=== PATIENT | male | born 1985 | race African-American/Black ===

== ENCOUNTER 2017-08-10 01:31 | Emergency (ER) | payer SELFPAY ==
[2017-08-10] MEDS ORDERED: NORMAL SALINE 1000 ML 1,000 ML IV ONE (02:25)
[2017-08-10] MEDS ORDERED: ONDANSETRON HCL INJ/PF 4 MG/2 ML SDV IV ONE (02:25)
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
--- NOTE | 2017-08-10 03:39 | RADIOLOGY REPORT (SQ) ---
EXAM DESCRIPTION: CT HEAD WITHOUT COMPLETED DATE/TIME: 08/10/2017 3:25 am REASON FOR STUDY: head trauma, vomiting COMPARISON: None. TECHNIQUE: Axial images acquired through the brain without intravenous contrast. Images reviewed wi th bone, brain and subdural windows. Images stored on PACS. All CT scanners at this facility use dose modulation, iterative reconstruction, and/or weight based d osing when appropriate to reduce radiation dose to as low as reasonably achievable (ALARA). [facility]: Dose Right [facility]: CareDose [facility]: Dose Right [facility]: Teradose 4D [facility]: [employer] RADIATION DOSE: mGy. LIMITATIONS: None. FINDINGS: VENTRICLES: Normal size and contour. CEREBRUM: No mass effect. No hemorrhage. No midline shift. Normal jiang/white matter differentiatio n. No evidence for acute territorial infarction. CEREBELLUM: No mass effect. No hemorrhage. No alteration of density. No evidence for acute infarct ion. EXTRAAXIAL SPACES: No fluid collections. ORBITS AND GLOBE: Symmetrical contour of the globes. CALVARIUM: No depressed skull fracture. PARANASAL SINUSES: No air-fluid level. SOFT TISSUES: No hematoma. IMPRESSION: No acute intracranial hemorrhage or depressed calvarial fracture. EVIDENCE OF ACUTE STROKE: NO. COMMENT: Quality ID # [id number]: Final reports with documentation of one or more dose reduction techniques (e.g., Automated exposure control, adjustment of the mA and/or kV according to patient size, use of iterative reconstruction technique) TECHNICAL DOCUMENTATION: JOB ID: [id number] [place]-[employer] 2010 [employer]- All Rights Reserved
[2017-08-10] MEDS ORDERED: KETOROLAC TROMETHAMINE INJ/PF 30 MG/1 ML SDV IV ONE (03:42)
[2017-08-10] MEDS ORDERED: PROCHLORPERAZINE EDISYLATE INJ 10 MG/2 ML VIAL IV ONE (03:42)
[2017-08-10] MEDS ORDERED: DIPHENHYDRAMINE HCL 50 MG/ML VIAL IV ONE (03:42)
[2017-08-10] MEDS ORDERED: ONDANSETRON ODT 4 MG TAB (6 TAB/DSPK) PO PRN (03:43)
[2017-08-10 04:59] VITALS: BP 106/45
== END 2017-08-10 04:59 | disposition home or self-care (01) ==
LOC: ER 01:31
DX: S09.90XA Unspecified injury of head, initial encounter (principal); S06.0X0A Concussion without loss of consciousness, initial encounter; R11.10 Vomiting, unspecified; R10.9 Unspecified abdominal pain; R04.2 Hemoptysis; R51 Headache; F17.200 Nicotine dependence, unspecified, uncomplicated; Y08.09XA Assault by strike by other specified type of sport equipment, initial encounter
CPT/HCPCS: 99284; 96361; 96374; 96375; 70450; J1200; J1885; J0780; J2405; J7030

== ENCOUNTER 2018-01-01 15:10 | Emergency (ER) | payer SELFPAY ==
[2018-01-01] MEDS ORDERED: PROCHLORPERAZINE EDISYLATE INJ 10 MG/2 ML VIAL IV ONE (17:23)
[2018-01-01] MEDS ORDERED: NORMAL SALINE 1000 ML 1,000 ML IV ONE (17:23)
[2018-01-01] MEDS ORDERED: KETOROLAC TROMETHAMINE INJ/PF 30 MG/1 ML SDV IV ONE (17:23)
[2018-01-01] MEDS ORDERED: DIPHENHYDRAMINE HCL 50 MG/ML VIAL IV ONE (17:23)
--- NOTE | 2018-01-01 17:23 | ER Document Report ---
HPI - HPI Patient complains to provider of: Headache Onset: Other - Monday Onset/Duration: Gradual Pain Level: 4 Context: 32-year-old smoker male complaining of a gradual onset frontal and temporal bilateral throbbing headache. It gradually increased to level 4-1/2/5. He has headaches that are this bad about once a year. Otherwise his headache history is about 2 normal headaches per month. No fever or chills. No recent illness or infection. No IV drug use. Associated Symptoms: None Exacerbated by: Other - Light and sound Relieved by: Denies - ROS ROS below otherwise negative: Yes Systems Reviewed and Negative: Yes All other systems reviewed and negative - NEURO Neurology: REPORTS: Headache Past Medical History - General Information source: Patient - Social History Smoking Status: Current Every Day Smoker Chew tobacco use (# tins/day): No Frequency of alcohol use: None Lives with: Spouse/Significant other Family History: Reviewed & Not Pertinent Patient has suicidal ideation: No Patient has homicidal ideation: No Pulmonary Medical History: Reports: Hx Asthma Neurological Medical History: Reports: Hx Migraine Renal/ Medical History: Denies: Hx Peritoneal Dialysis Surgical Hx: Negative - Immunizations Hx Diphtheria, Pertussis, Tetanus Vaccination: Yes Vertical Provider Document - CONSTITUTIONAL Agree With Documented VS: Yes Exam Limitations: No Limitations - INFECTION CONTROL TRAVEL OUTSIDE OF THE [place] IN LAST 30 DAYS: No - HEENT HEENT: DRE. negative: Conjuctival Injection, Pharyngeal Erythema - NECK Neck: Supple. negative: Lymphadenopathy-Left, Lymphadenopathy-Right - RESPIRATORY Respiratory: Breath Sounds Normal, No Respiratory Distress - CARDIOVASCULAR Cardiovascular: Regular Rate, Regular Rhythm - GI/ABDOMEN Gastrointestinal: Abdomen Soft, Abdomen Non-Tender, No Organomegaly, Normal Bowel Sounds - MUSCULOSKELETAL/EXTREMETIES Musculoskeletal/Extremeties: MAEW - NEURO Level of Consciousness: Awake, Alert Motor/Sensory: No Motor Deficit, No Sensory Deficit - DERM Integumentary: Warm, Dry Course - Re-evaluation Re-evalutation: 01/01/18 18:13 Headache is down to 1/5 and he. He feels like he is ready to go home. His went out to smoke a cigarette. - Vital Signs Vital signs: Temp Pulse Resp BP Pulse Ox 98.4 F 66 16 129/62 H 100 01/01/18 15:33 01/01/18 15:33 01/01/18 15:33 01/01/18 15:33 01/01/18 15:33 Discharge - Discharge Clinical Impression: Headache Qualifiers: Headache type: unspecified Headache chronicity pattern: acute headache Intractability: not intractable Qualified Code(s): R51 - Headache Condition: Good Disposition: HOME, SELF-CARE Instructions: Intravenous Compazine for Headaches ([facility]), Use of Diphenhydramine , Headache ([facility]), Toradol Injection ([facility]) Additional Instructions: rest plenty of fluids Return to the emergency room if symptoms worsen Can see a neurologist for headache follow-up Referrals: CARMEN LO MD [NO LOCAL MD] - Follow up as needed
[2018-01-01 18:53] VITALS: BP 125/81
== END 2018-01-01 18:51 | disposition home or self-care (01) ==
LOC: ER 15:10
DX: R51 Headache (principal); J45.909 Unspecified asthma, uncomplicated; F17.200 Nicotine dependence, unspecified, uncomplicated; Z86.69 Personal history of other diseases of the nervous system and sense organs
CPT/HCPCS: 99283; 96361; 96374; 96375; J1200; J1885; J0780; J7030

== ENCOUNTER 2018-09-06 15:42 | Emergency (ER) | payer SELFPAY ==
[2018-09-06 15:47] VITALS: BP 119/57
[2018-09-06] MEDS ORDERED: ACETAMINOPHEN 325 MG TABLET PO ONE (17:11)
[2018-09-06] MEDS ORDERED: ONDANSETRON 4 MG TAB.RAPDIS PO ONE (17:11)
--- NOTE | 2018-09-06 17:12 | ER Document Report ---
ED Medical Screen (RME) - General Chief Complaint: Abdominal Pain Stated Complaint: ABDOMINAL PAIN Time Seen by Provider: 09/06/18 17:11 Mode of Arrival: Ambulatory Information source: Patient Notes: Patient presents complaining of cold symptoms with mild congestion. Patient reports abdominal discomfort off and on today. Patient states that he does not feel well but denies any specific nausea vomiting or diarrhea. Patient denies any fever or urinary symptoms. Patient states that he did not feel well enough to work and will likely need a note for his employer. I have greeted and performed a rapid initial assessment of this patient. A comprehensive ED assessment and evaluation of the patient, analysis of test results and completion of the medical decision making process will be conducted by additional ED providers. TRAVEL OUTSIDE OF THE [place] IN LAST 30 DAYS: No - Related Data Allergies/Adverse Reactions: No Known Allergies Allergy (Verified 08/10/17 03:10) Past Medical History Pulmonary Medical History: Reports: Hx Asthma Neurological Medical History: Reports: Hx Migraine Renal/ Medical History: Denies: Hx Peritoneal Dialysis - Immunizations Hx Diphtheria, Pertussis, Tetanus Vaccination: Yes Physical Exam - Vital signs Vitals: Temp Pulse Resp BP Pulse Ox 97.9 F 75 20 119/57 L 100 09/06/18 15:46 09/06/18 15:46 09/06/18 15:46 09/06/18 15:46 09/06/18 15:46 - Abdominal Tenderness: Tender - Periumbilical Course - Vital Signs Vital signs: Temp Pulse Resp BP Pulse Ox 97.9 F 75 20 119/57 L 100 09/06/18 15:46 09/06/18 15:46 09/06/18 15:46 09/06/18 15:46 09/06/18 15:46
[2018-09-06 18:15] LABS: ABSOLUTE BASOPHILS # (AUTO) 0.1 10^3/uL (0.0-0.2); ABSOLUTE EOSINOPHILS # (AUTO) 0.4 10^3/uL (0.0-0.6); ABSOLUTE MONOCYTES (AUTO) 0.7 10^3/uL (0.1-1.4); ABSOLUTE NEUT (AUTO) 5.5 10^3/uL (1.7-8.2); BASOPHILS % (AUTO) 0.7 % (0-2); EOSINOPHILS % (AUTO) 4.4 % (0-6); HEMATOCRIT 40.5 % (37.9-51.0); HEMOGLOBIN 13.5 g/dL (13.5-17.0); LYMPHOCYTES % (AUTO) 23.1 % (13-45); MEAN CORPUSCULAR HEMOGLOBIN 27.7 pg (27.0-33.4); MEAN CORPUSCULAR HGB CONC 33.2 g/dL (32.0-36.0); MEAN CORPUSCULAR VOLUME 83 fl (80-97); MONOCYTES % (AUTO) 8.6 % (3-13); PLATELET COUNT 192 10^3/uL (150-450); RED BLOOD COUNT 4.86 10^6/uL (4.35-5.55); RED CELL DISTRIBUTION WIDTH 14.5 % (11.5-14.0); SEGMENTED NEUTROPHILS % (AUTO) 63.2 % (42-78); TOTAL CELLS COUNTED % (AUTO) 100 %; WHITE BLOOD COUNT 8.6 10^3/uL (4.0-10.5)
[2018-09-06 18:22] LABS: APPEARANCE,URINE CLEAR; BILIRUBIN,URINE NEGATIVE (NEGATIVE); COLOR,URINE YELLOW; GLUCOSE, URINE NEGATIVE (NEGATIVE); KETONES,URINE NEGATIVE (NEGATIVE); LEUKOCYTE ESTERASE,URINE NEGATIVE (NEGATIVE); NITRITE,URINE NEGATIVE (NEGATIVE); PROTEIN,URINE NEGATIVE (NEGATIVE); URINE SPECIFIC GRAVITY 1.023
[2018-09-06 18:34] LABS: ALANINE AMINOTRANSFERASE 24 U/L (21-72); ALKALINE PHOSPHATASE 99 U/L (38-126); ANION GAP 5 (5-19); ASPARTATE AMINO TRANSFERASE 30 U/L (17-59); BILIRUBIN,DIRECT 0.1 mg/dL (0.0-0.4); BILIRUBIN,TOTAL 0.5 mg/dL (0.2-1.3); BLOOD UREA NITROGEN 13 mg/dL (7-20); CALCIUM 9.7 mg/dL (8.4-10.2); CARBON DIOXIDE 30 mmol/L (22-30); CHLORIDE 105 mmol/L (98-107); GLUCOSE 72 mg/dL (75-110); LIPASE 88.3 U/L (23-300); POTASSIUM 4.3 mmol/L (3.6-5.0); SODIUM 140.1 mmol/L (137-145); TOTAL PROTEIN 6.7 g/dL (6.3-8.2)
--- NOTE | 2018-09-06 19:00 | ER Document Report ---
HPI - HPI Patient complains to provider of: Cold symptoms, abdominal cramping Time Seen by Provider: 09/06/18 17:11 Onset: Yesterday Onset/Duration: Waxing and waning Quality of pain: Achy Pain Level: 2 Context: Pt presents complaining of cold symptoms with mild abdominal cramping off and on since yesterday. 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 Patient states he primarily came for a note for his employer. Patient denies any vomiting or diarrhea. Patient denies any fever or urinary symptoms. Associated Symptoms: Nonproductive cough, Nausea, Other - abd cramping. denies: Earache, Fever, Vomiting, Rhinnorhea, Shortness of breath Exacerbated by: Denies Relieved by: Denies Similar symptoms previously: No Recently seen / treated by doctor: No - ROS ROS below otherwise negative: Yes Systems Reviewed and Negative: Yes All other systems reviewed and negative - CONSTITUTIONAL Constitutional: DENIES: Fever, Chills - EENT EENT: REPORTS: Congestion. DENIES: Sore Throat - NEURO Neurology: DENIES: Headache - CARDIOVASCULAR Cardiovascular: DENIES: Chest pain - RESPIRATORY Respiratory: REPORTS: Coughing. DENIES: Trouble Breathing - GASTROINTESTINAL Gastrointestinal: REPORTS: Abdominal Pain, Nausea. DENIES: Patient vomiting, Diarrhea - URINARY Urinary: DENIES: Dysuria - MUSCULOSKELETAL Musculoskeletal: DENIES: Back Pain - DERM Skin Color: Normal Skin Problems: None Past Medical History - General Information source: Patient - Social History Smoking Status: Current Some Day Smoker Chew tobacco use (# tins/day): No Frequency of alcohol use: Occasional Drug Abuse: Marijuana Occupation: [employer] Lives with: Family Family History: Reviewed & Not Pertinent Patient has suicidal ideation: No Patient has homicidal ideation: No Pulmonary Medical History: Reports: Hx Asthma Neurological Medical History: Reports: Hx Migraine Renal/ Medical History: Denies: Hx Peritoneal Dialysis Surgical Hx: Negative - Immunizations Hx Diphtheria, Pertussis, Tetanus Vaccination: Yes Vertical Provider Document - CONSTITUTIONAL Agree With Documented VS: Yes Exam Limitations: No Limitations General Appearance: WD/WN, No Apparent Distress - INFECTION CONTROL TRAVEL OUTSIDE OF THE [place] IN LAST 30 DAYS: No - HEENT HEENT: Atraumatic, Normocephalic. negative: Pharyngeal Exudate, Pharyngeal Tenderness, Pharyngeal Erythema - NECK Neck: Normal Inspection, Supple. negative: Lymphadenopathy-Left, Lymphadenopathy-Right - RESPIRATORY Respiratory: Breath Sounds Normal, No Respiratory Distress, Chest Non-Tender. negative: Rhonchi, Wheezing - CARDIOVASCULAR Cardiovascular: Regular Rate, Regular Rhythm, No Murmur - GI/ABDOMEN Gastrointestinal: Abdomen Soft, Abdomen Non-Tender, No Organomegaly, Normal Bowel Sounds. negative: Abdomen Tender - BACK Back: Normal Inspection. negative: CVA Tenderness-Right, CVA Tenderness-Left - MUSCULOSKELETAL/EXTREMETIES Musculoskeletal/Extremeties: MAEW - NEURO Level of Consciousness: Awake, Alert, Appropriate Motor/Sensory: No Motor Deficit - DERM Integumentary: Warm, Dry, No Rash Course - Re-evaluation Re-evalutation: 09/06/18 19:00 Patient reports feeling better, denies any abdominal discomfort. Patient is requesting to be discharged at this time. Patient presents with abdominal pain without signs of peritonitis or other life-threatening or serious etiology. Patient appears stable for discharge and has been instructed to return immediately if the symptoms worsen in any way, or in 8-12 hours if not improved for reevaluation. The patient has been instructed to return if the symptoms worsen or change in any way. - Vital Signs Vital signs: Temp Pulse Resp BP Pulse Ox 97.9 F 75 20 119/57 L 100 09/06/18 15:46 09/06/18 15:46 09/06/18 15:46 09/06/18 15:46 09/06/18 15:46 - Laboratory Result Diagrams: 09/06/18 17:48 09/06/18 17:48 Laboratory results interpreted by me: 09/06/18 09/06/18 09/06/18 17:48 17:48 17:48 RDW 14.5 H Glucose 72 L Urine Urobilinogen 4.0 H Discharge - Discharge Clinical Impression: Nausea Abdominal pain Qualifiers: Abdominal location: unspecified location Qualified Code(s): R10.9 - Unspecified abdominal pain Condition: Stable Disposition: HOME, SELF-CARE Instructions: Abdominal Pain ([facility]), Antinausea Medication ([facility]) Additional Instructions: Return immediately for any new or worsening symptoms Followup with your primary care provider, call tomorrow to make a followup appointment Prescriptions: Ondansetron HCl [Zofran 4 mg Tablet] 1 - 2 tab PO Q6 PRN #10 tablet PRN Reason: Forms: Return to Work Referrals: [facility] [Provider Group] - Follow up as needed
== END 2018-09-06 19:06 | disposition home or self-care (01) ==
LOC: ER 15:42
DX: R10.9 Unspecified abdominal pain (principal); R11.0 Nausea; R05 Cough; J45.909 Unspecified asthma, uncomplicated; F17.200 Nicotine dependence, unspecified, uncomplicated; F12.10 Cannabis abuse, uncomplicated
CPT/HCPCS: 99284; 36415; 83690; 85025; 80053; 81001; S0119

== ENCOUNTER 2018-09-19 19:05 | Emergency (ER) | payer SELFPAY ==
[2018-09-19] MEDS ORDERED: IBUPROFEN 600 MG TABLET PO ONE (20:30)
--- NOTE | 2018-09-19 21:38 | ER Document Report ---
HPI - HPI Patient complains to provider of: cough Pain Level: 4 Context: Patient is a 32-year-old male presents to the emergency department chief complaint cough, congestion, body aches, fever, sore throat for the last 3 days. Patient states "I think I have the flu." Patient denies any nausea, vomiting, change in bowel or bladder habits. Patient states he has been able to drink fluids but has not really wanted to eat any food in the last 24 hours. Past medical history: Childhood asthma Medications: None Allergies: None - CONSTITUTIONAL Constitutional: REPORTS: Fever, Chills - RESPIRATORY Respiratory: REPORTS: Coughing <MATTHIEU FLORES - Last Filed: 09/20/18 01:48> <DHARMESH ALFONSO - Last Filed: 09/20/18 01:56> - HPI Time Seen by Provider: 09/19/18 20:30 Past Medical History - General Information source: Patient - Social History Smoking Status: Current Every Day Smoker Chew tobacco use (# tins/day): No Frequency of alcohol use: None Drug Abuse: None Family History: Reviewed & Not Pertinent Patient has suicidal ideation: No Patient has homicidal ideation: No Pulmonary Medical History: Reports: Hx Asthma Neurological Medical History: Reports: Hx Migraine Renal/ Medical History: Denies: Hx Peritoneal Dialysis - Immunizations Hx Diphtheria, Pertussis, Tetanus Vaccination: Yes <MATTHIEU FLORES - Last Filed: 09/20/18 01:48> Vertical Provider Document - CONSTITUTIONAL Agree With Documented VS: Yes Notes: GENERAL: Alert, interacts well. No acute distress. Well-hydrated HEAD: Normocephalic, atraumatic. No frontal or maxillary sinus tenderness EYES: Pupils equal, round, and reactive to light. Extraocular movements intact. ENT: Oral mucosa moist, tongue midline. Nares patent, TM's intact, nonerythematous, nonbulging. Pharynx erythematous, tonsils +2 bilaterally with no exudate noted. NECK: Full range of motion. Supple. Trachea midline. No lymphadenopathy appreciated LUNGS: Clear to auscultation bilaterally, no wheezes, rales, or rhonchi. No respiratory distress. HEART: Regular rate and rhythm. No murmur ABDOMEN: Soft, non-tender. Non-distended. Bowel sounds present in all 4 quadrants. EXTREMITIES: Moves all 4 extremities spontaneously. No edema, normal radial and dorsalis pedis pulses bilaterally. No cyanosis. BACK: no cervical, thoracic, lumbar midline tenderness. No saddle anesthesia, normal distal neurovascular exam. NEUROLOGICAL: Alert and oriented x3. Normal speech. cranial nerves II through XII grossly intact PSYCH: Normal affect, normal mood. SKIN: Warm, dry, normal turgor. No rashes or lesions noted. - INFECTION CONTROL TRAVEL OUTSIDE OF THE [place] IN LAST 30 DAYS: No <MATTHIEU FLORES - Last Filed: 09/20/18 01:48> Course - Re-evaluation Re-evalutation: 09/19/18 21:37 In discussing with patient that unfortunately the influenza virus is a virus and does not respond to antibiotics we will just treat his signs and symptoms patient states "I know you cannot do anything, I just need a note for work." Discussed symptomatic treatments at home. And patient given a note for work. Patient stable for discharge. - Vital Signs Vital signs: Temp Pulse Resp BP Pulse Ox 100.6 F H 89 20 134/63 H 100 09/19/18 19:21 09/19/18 19:21 09/19/18 19:21 09/19/18 19:21 09/19/18 19:21 <MATTHIEU FLORES - Last Filed: 09/20/18 01:48> - Re-evaluation Re-evalutation: 09/20/18 01:56 I was personally available for consultation during this patient's worse. I did not personally evaluate the patient. - Vital Signs Vital signs: Temp Pulse Resp BP Pulse Ox 99.4 F 82 18 132/82 H 98 09/19/18 21:51 09/19/18 21:51 09/19/18 21:51 09/19/18 21:51 09/19/18 21:51 <DHARMESH ALFONSO - Last Filed: 09/20/18 01:56> Discharge <MATTHIEU FLORES - Last Filed: 09/20/18 01:48> <DHARMESH ALFONSO - Last Filed: 09/20/18 01:56> - Discharge Clinical Impression: Upper respiratory infection Qualifiers: URI type: unspecified viral URI Qualified Code(s): J06.9 - Acute upper respiratory infection, unspecified Pharyngitis Qualifiers: Pharyngitis/tonsillitis etiology: unspecified etiology Qualified Code(s): J02.9 - Acute pharyngitis, unspecified Condition: Stable Disposition: HOME, SELF-CARE Instructions: Sore Throat ([facility]), Upper Respiratory Illness ([facility]), Viral Syndrome ([facility]) Additional Instructions: As we discussed you have been seen and treated in the emergency department for an upper respiratory infection. Please take medications as prescribed and continue with [id number] cold medications. Please stay well-hydrated and follow-up with your primary care provider. Please return to the emergency room for any other concerning symptoms. Prescriptions: Benzonatate [Tessalon Perles 100 mg Capsule] 100 mg PO Q8HP PRN #40 capsule PRN Reason: Mometasone Furoate [Nasonex] 1 spray NS Q12 #1 spray.pump Pseudoephedrine HCl [Sudafed 12 Hour] 120 mg PO BID #20 tablet.er Forms: Return to Work
[2018-09-19 21:53] VITALS: BP 132/82
== END 2018-09-19 21:55 | disposition home or self-care (01) ==
LOC: ER 19:05
DX: J06.9 Acute upper respiratory infection, unspecified (principal); J02.9 Acute pharyngitis, unspecified; R05 Cough; R50.9 Fever, unspecified
CPT/HCPCS: 87070; 87880; 99283

== ENCOUNTER 2019-07-03 20:57 | Emergency (ER) | payer SELFPAY ==
[2019-07-04 00:14] VITALS: BP 131/71
--- NOTE | 2019-07-04 00:29 | ER Document Report ---
HPI - HPI Time Seen by Provider: 07/03/19 23:46 Pain Level: Denies Context: Patient is a 33-year-old male that comes emergency department for chief complaint of feeling very tired. He states he has been working constantly, he states he feels exhausted. However he denies fever/chills, nausea/vomiting, headache, chest pain, shortness of breath, dyspnea. He denies frequent urination. He denies any other complaints. He denies any daily medications, recreational drugs, or past medical history. He states he was told he needed a work note before he returned to work because he left work today. - REPRODUCTIVE Reproductive: DENIES: : Past Medical History - General Information source: Patient - Social History Smoking Status: Current Every Day Smoker Chew tobacco use (# tins/day): No Frequency of alcohol use: Occasional Drug Abuse: None Lives with: Family Family History: Reviewed & Not Pertinent Patient has suicidal ideation: No Patient has homicidal ideation: No Pulmonary Medical History: Reports: Hx Asthma Neurological Medical History: Reports: Hx Migraine Renal/ Medical History: Denies: Hx Peritoneal Dialysis Surgical Hx: Negative - Immunizations Hx Diphtheria, Pertussis, Tetanus Vaccination: Yes Vertical Provider Document - CONSTITUTIONAL General Appearance: WD/WN, No Apparent Distress - INFECTION CONTROL TRAVEL OUTSIDE OF THE [place] IN LAST 30 DAYS: No - HEENT HEENT: Atraumatic, Normocephalic - NECK Neck: Normal Inspection - RESPIRATORY Respiratory: Breath Sounds Normal, No Respiratory Distress - CARDIOVASCULAR Cardiovascular: Regular Rate, Regular Rhythm - GI/ABDOMEN Gastrointestinal: Abdomen Soft, Abdomen Non-Tender - BACK Back: Normal Inspection - MUSCULOSKELETAL/EXTREMETIES Musculoskeletal/Extremeties: MAEW, FROM, Non-Tender - NEURO Level of Consciousness: Awake, Alert, Appropriate Motor/Sensory: No Motor Deficit, No Sensory Deficit - DERM Integumentary: Warm, Dry, No Rash Course - Re-evaluation Re-evalutation: Patient is very well-appearing. Unremarkable vital signs. Normal physical exam. Nonspecific symptoms reported. Patient mainly requesting a work note, states that he would like to get this in and leave. I did discuss different work-up options including Accu-Chek, patient states that he had his blood sugar checked at home by his who is a diabetic and his glucose was normal. He declines any other evaluation. Stable at time of discharge. - Vital Signs Vital signs: Temp Pulse Resp BP Pulse Ox 97.9 F 63 15 131/71 H 100 07/04/19 00:13 07/04/19 00:13 07/04/19 00:13 07/04/19 00:13 07/04/19 00:13 Discharge - Discharge Clinical Impression: Generalized weakness Condition: Stable Disposition: HOME, SELF-CARE Additional Instructions: Your evaluation and work-up are reassuring. For recovery I simply recommend rest and drink plenty fluids. Symptoms of generalized weakness and tiredness should resolve with time. If symptoms continue follow-up with primary care for additional evaluation and management. Return if you worsen including difficulty breathing, chest pain, passing out, fe vers, or any other concerning or worsening symptoms. Forms: Return to Work
== END 2019-07-04 00:30 | disposition home or self-care (01) ==
LOC: ER 20:57
DX: R53.1 Weakness (principal); R53.83 Other fatigue; F17.200 Nicotine dependence, unspecified, uncomplicated

== ENCOUNTER 2019-07-24 14:28 | Emergency (ER) | payer SELFPAY ==
--- NOTE | 2019-07-24 14:50 | ER Document Report ---
ED Medical Screen (RME) - General Chief Complaint: Abscess Stated Complaint: ABSCESS Time Seen by Provider: 07/24/19 14:47 Mode of Arrival: Ambulatory Information source: Patient Notes: Patient presents emergency department with complaints of swelling around his rectal area. Sounds like hemorrhoids questionable abscess. Reports his put a cold pack on it and the area did go down. Patient also reports he needs a work note. Denies past medical history of abscess or hemorrhoids I have greeted and performed a rapid initial assessment of this patient. A comprehensive ED assessment and evaluation of the patient, analysis of test results and completion of the medical decision making process will be conducted by additional ED providers. Dictation of this chart was performed using voice recognition software; therefore, there may be some unintended grammatical errors. TRAVEL OUTSIDE OF THE [place] IN LAST 30 DAYS: No - Related Data Allergies/Adverse Reactions: No Known Allergies Allergy (Verified 07/24/19 14:46) Past Medical History Pulmonary Medical History: Reports: Hx Asthma Neurological Medical History: Reports: Hx Migraine Renal/ Medical History: Denies: Hx Peritoneal Dialysis - Immunizations Hx Diphtheria, Pertussis, Tetanus Vaccination: Yes Physical Exam - Vital signs Vitals: Temp Pulse Resp BP Pulse Ox 98.2 F 86 20 155/83 H 100 07/24/19 14:32 07/24/19 14:32 07/24/19 14:32 07/24/19 14:32 07/24/19 14:32 Course - Vital Signs Vital signs: Temp Pulse Resp BP Pulse Ox 98.2 F 86 20 155/83 H 100 07/24/19 14:32 07/24/19 14:32 07/24/19 14:32 07/24/19 14:32 07/24/19 14:32
--- NOTE | 2019-07-24 15:33 | ER Document Report ---
HPI - HPI Time Seen by Provider: 07/24/19 14:47 Pain Level: 5 Context: 33M patient presents emergency department with complaints of swelling around his rectal area. Patient is unsure if it is an abscess or if it is a hemorrhoid. He states his put a cold pack in the area last night. He denies fevers or chills, denies constipation, denies diarrhea or bloody stool. History of MRSA. - REPRODUCTIVE Reproductive: DENIES: : Past Medical History - General Information source: Patient - Social History Smoking Status: Current Every Day Smoker Chew tobacco use (# tins/day): No Frequency of alcohol use: Occasional Drug Abuse: None Family History: Reviewed & Not Pertinent Patient has suicidal ideation: No Patient has homicidal ideation: No Pulmonary Medical History: Reports: Hx Asthma Neurological Medical History: Reports: Hx Migraine Renal/ Medical History: Denies: Hx Peritoneal Dialysis - Immunizations Hx Diphtheria, Pertussis, Tetanus Vaccination: Yes Vertical Provider Document - CONSTITUTIONAL Notes: PHYSICAL EXAMINATION: Reviewed vital signs and charting by RN GENERAL: Alert, interacts well. No acute distress. HEAD: Normocephalic, atraumatic. EYES: Pupils equal and round. Extraocular movements intact. ENT: Oral mucosa moist, tongue midline. NECK: Full range of motion. Trachea midline. EXTREMITIES: Moves all 4 extremities spontaneously. No edema, No cyanosis. GI: Nonthrombosed hemorrhoid approximately 3 x 3 mm at the 2 o'clock position of the rectum, external, acutely tender to palpation PSYCH: Normal affect, normal mood. SKIN: Warm, dry, normal turgor. No rashes or lesions noted. - INFECTION CONTROL TRAVEL OUTSIDE OF THE [place] IN LAST 30 DAYS: No Course - Vital Signs Vital signs: Temp Pulse Resp BP Pulse Ox 98.2 F 86 20 155/83 H 100 07/24/19 14:32 07/24/19 14:32 07/24/19 14:32 07/24/19 14:32 07/24/19 14:32 Discharge - Discharge Clinical Impression: Acute hemorrhoid Condition: Good Disposition: HOME, SELF-CARE Additional Instructions: Hemorrhoids You have hemorrhoids. These are formed by enlargement of veins around the anus. The cause is increased pressure in the veins, from or straining at bowel movements. Hemorrhoids often cause itching and bleeding with bowel movements. When a hemorrhoid becomes clotted, severe pain and swelling result. Soothing creams and suppositories are often prescribed. Warm sitz-baths may also decrease pain, swelling, and itching. Eat a high-fiber diet. Stool softeners such as Metamucil will help. Keep the area very clean. Medicated cleansing pads (such as Tucks) are useful after bowel movements. A hose-mounted shower unit (like a shower massager at low water pressure) can be used to clean around tender hemorrhoid tags. You should call the doctor or return if you develop fever, increasing pain, or an enlarging mass around the anus, or if you simply fail to improve with treatment. Forms: Return to Work
[2019-07-24 15:42] VITALS: BP 147/82
== END 2019-07-24 15:38 | disposition home or self-care (01) ==
LOC: ER 14:28
DX: K64.9 Unspecified hemorrhoids (principal); F17.200 Nicotine dependence, unspecified, uncomplicated; Z86.14 Personal history of Methicillin resistant Staphylococcus aureus infection

== ENCOUNTER 2019-08-02 17:42 | Emergency (ER) | payer SELFPAY ==
[2019-08-02 17:48] VITALS: BP 165/78
[2019-08-02] MEDS ORDERED: IBUPROFEN 800 MG TABLET PO ONE (18:07)
[2019-08-02] MEDS ORDERED: PENICILLIN V POTASSIUM 500 MG TABLET PO ONE (18:07)
--- NOTE | 2019-08-02 18:09 | ER Document Report ---
ED Oral Problem - General Chief Complaint: Jaw Pain Stated Complaint: JAW PAIN Time Seen by Provider: 08/02/19 18:04 Mode of Arrival: Ambulatory Information source: Patient Notes: 33-year-old male presented to ED for complaint of pain to the his left upper jaw. He states is been hurting for 3 or 4 weeks. He states is been getting steadily worse. He states he has not been to the dentist as he does not have insurance. Patient is alert oriented respirations regular nonlabored speaking in full sentences walks with even steady gait. TRAVEL OUTSIDE OF THE [place] IN LAST 30 DAYS: No - HPI Patient complains to provider of: Toothache Onset: Other - 3 to 4 weeks Onset: Gradual Quality of pain: Throbbing Severity: Moderate Pain Level: 4 Associated symptoms: Toothache Worsened by: Cold Similar symptoms previously: Yes Recently seen / treated by doctor/dentist: No - Related Data Allergies/Adverse Reactions: No Known Allergies Allergy (Verified 07/24/19 14:46) Past Medical History - General Information source: Patient - Social History Smoking Status: Current Every Day Smoker Cigarette use (# per day): Yes - 2 cigarettes a day Chew tobacco use (# tins/day): No Smoking Education Provided: Yes - 4 minutes Frequency of alcohol use: None Drug Abuse: None Lives with: Family Family History: Reviewed & Not Pertinent Patient has suicidal ideation: No Patient has homicidal ideation: No - Past Medical History Cardiac Medical History: Reports: None Pulmonary Medical History: Reports: Hx Asthma EENT Medical History: Reports: None Neurological Medical History: Reports: Hx Migraine Endocrine Medical History: Reports: None Renal/ Medical History: Reports: None Malignancy Medical History: Reports None GI Medical History: Reports: None Musculoskeletal Medical History: Reports None Skin Medical History: Reports None Psychiatric Medical History: Reports: None Traumatic Medical History: Reports: None Infectious Medical History: Reports: None Surgical Hx: Negative Past Surgical History: Reports: None - Immunizations Immunizations up to date: Yes Hx Diphtheria, Pertussis, Tetanus Vaccination: Yes Review of Systems - Review of Systems Constitutional: No symptoms reported EENT: Mouth pain, Dental problem Cardiovascular: No symptoms reported Respiratory: No symptoms reported Gastrointestinal: No symptoms reported Genitourinary: No symptoms reported Male Genitourinary: No symptoms reported Musculoskeletal: No symptoms reported Skin: No symptoms reported Hematologic/Lymphatic: No symptoms reported Neurological/Psychological: No symptoms reported -: Yes All other systems reviewed and negative Physical Exam - Vital signs Vitals: Temp Pulse Resp BP Pulse Ox 98.4 F 94 16 165/78 H 99 08/02/19 17:48 08/02/19 17:48 08/02/19 17:48 08/02/19 17:48 08/02/19 17:48 Interpretation: Normal - General General appearance: Appears well, Alert - HEENT Head: Normocephalic, Atraumatic Eyes: Normal Pupils: PERRL Ears: Normal External canal: Normal Tympanic membrane: Normal Sinus: Normal Nasal: Normal Mouth/Lips: Caries Mucous membranes: Normal Teeth diagram: 1 - Dental cavity mild swelling to the jaw no swelling to the face Pharynx: Normal Neck: Normal - Respiratory Respiratory status: No respiratory distress Chest status: Nontender Breath sounds: Normal Chest palpation: Normal - Cardiovascular Rhythm: Regular Heart sounds: Normal auscultation Murmur: No - Abdominal Inspection: Normal Distension: No distension Bowel sounds: Normal Tenderness: Nontender Organomegaly: No organomegaly - Back Back: Normal, Nontender - Extremities General upper extremity: Normal inspection, Nontender, Normal color, Normal ROM, Normal temperature General lower extremity: Normal inspection, Nontender, Normal color, Normal ROM, Normal temperature, Normal weight bearing. No: Wisam's sign - Neurological Neuro grossly intact: Yes Cognition: Normal Orientation: AAOx4 Driggs Coma Scale Eye Opening: Spontaneous Stacey Coma Scale Verbal: Oriented Driggs Coma Scale Motor: Obeys Commands Stacey Coma Scale Total: 15 Speech: Normal Motor strength normal: LUE, RUE, LLE, RLE Sensory: Normal - Psychological Associated symptoms: Normal affect, Normal mood - Skin Skin Temperature: Warm Skin Moisture: Dry Skin Color: Normal Course - Re-evaluation Re-evalutation: 08/02/19 18:16 Presentation is most consistent with likely an infected tooth. Airway is patent. Vitals within normal limits. Patient is able swallow without any difficulty. There is no significant facial swelling. No evidence of Ed angina, apical abscess, or airway obstruction. Patient will be started on antibiotics. I've instructed to follow-up with dentistry as earliest ability fo r definitive management. At this time will discharge with return precautions and follow-up recommendations. Verbal discharge instructions given a the bedside and opportunity for questions given. Medication warnings reviewed. Patient is in agreement with this plan and has verbalized understanding of return precautions and the need for primary care follow-up in the next 24-72 hours. - Vital Signs Vital signs: Temp Pulse Resp BP Pulse Ox 98.4 F 94 16 165/78 H 99 08/02/19 17:48 08/02/19 17:48 08/02/19 17:48 08/02/19 17:48 08/02/19 17:48 Discharge - Discharge Clinical Impression: Dental pain upper left jaw Condition: Stable Disposition: HOME, SELF-CARE Additional Instructions: TOOTHACHE: Your pain is due to dental decay. The tooth must be repaired in order for you to feel better. You will, therefore, be referred to a dentist. We do not have dentists on the staff at [facility]. Severe swelling or drainage around a tooth usually means a dental abscess. This also requires evaluation and treatment by the dentist, but antibiotics may be prescribed while awaiting dental treatment. You should be rechecked immediately if you develop major swelling of the face, increasing pain, a lump in the jaw or gums, headache, difficulty swallowing, or fever. PENICILLIN V K: You have been given a prescription for Penicillin VK. Your physician has determined that this is the best antibiotic for your condition. Pen VK can be taken with meals, however more of the antibiotic gets into the bloodstream if it's taken on an empty stomach. Penicillin usually has no side effects. However, allergy to penicillins is common. If you have had an allergic reaction to any drug of the penicillin family, you should never take any other penicillin. Notify your doctor at once if you develop hives, itching, swelling, faintness, or shortness of breath. FOLLOW-UP CARE: You have been referred for follow-up care to the dentists listed below. Call the dentists office for an appointment as you were instructed or within the next two days. If you experience worsening or a significant change in your symptoms, notify the physician immediately or return to the Emergency Department at any time for re-evaluation. [facility] [address] [place] [address] [facility] [address] [facility] [address] [facility] [address] [facility] [email or web address] [address] [place] [address] Monday- 8:00am to 5:00 pm [facility]. Charges based on income and family size and accepts Medicare, Medicaid, and Insurances Will pull molars [facility] [address] Hours of Operation 8:00 am - 4:30 pm weekdays The following dental offices accept Medicaid: [facility] Dr. Cumm[address] Dr. Long Dr. Najera Dr. Goss Colin James, Matt, and Raffi oral surgery Dr. Maynard ([place]) Dr. Pendleton ([place]) [facility] Drs. Colby ([place]) Dr. Buchanan ([place]) [facility] Dr. Kohler ([place]) Drs. Perez and ([place]) Medicaid Care Line Prescriptions: Penicillin V Potassium [Penicillin Vk 500 mg Tablet] 500 mg PO BID #20 tablet Forms: Elevated Blood Pressure, Smoking Cessation Education, Return to Work Referrals: [facility] [Provider Group] - Follow up as needed
== END 2019-08-02 18:16 | disposition home or self-care (01) ==
LOC: ER 17:42
DX: K02.9 Dental caries, unspecified (principal); R22.0 Localized swelling, mass and lump, head; K08.89 Other specified disorders of teeth and supporting structures; F17.210 Nicotine dependence, cigarettes, uncomplicated; Z71.6 Tobacco abuse counseling; J45.909 Unspecified asthma, uncomplicated
CPT/HCPCS: 99283; 99406

== ENCOUNTER 2019-08-23 13:38 | Emergency (ER) | payer SELFPAY ==
--- NOTE | 2019-08-23 15:32 | ER Document Report ---
HPI - HPI Time Seen by Provider: 08/23/19 15:25 Notes: Patient is a 33-year-old male with no significant past medical history who presents complaining of having nausea over the past couple days and overall just not feeling well. Patient states he called out of work yesterday and today and is here for a work note. He is able to eat and drink without difficulty. He is urinating normally and having normal bowel movements. Denies drug allergies. He is not having any pain anywhere. Denies any headache, fever, neck pain, URI, sore throat, chest pain, palpitations, syncope, cough, shortness of breath, wheeze, dyspnea, abdominal pain, vomiting/diarrhea, urinary retention, dysuria, hematuria, or rash. - ROS Systems Reviewed and Negative: Yes All other systems reviewed and negative - REPRODUCTIVE Reproductive: DENIES: : Past Medical History - Social History Smoking Status: Current Every Day Smoker Family History: Reviewed & Not Pertinent Pulmonary Medical History: Reports: Hx Asthma Neurological Medical History: Reports: Hx Migraine Renal/ Medical History: Denies: Hx Peritoneal Dialysis - Immunizations Immunizations up to date: Yes Hx Diphtheria, Pertussis, Tetanus Vaccination: Yes Vertical Provider Document - CONSTITUTIONAL Agree With Documented VS: Yes Notes: PHYSICAL EXAMINATION: GENERAL: Well-appearing, well-nourished and in no acute distress. A&Ox4. Answers questions appropriately. HEAD: Atraumatic, normocephalic. EYES: Pupils equal round and reactive to light, extraocular movements intact, sclera anicteric, conjunctiva are normal. ENT: Nares patent and without discharge. oropharynx clear without exudates. No tonsilar hypertrophy or erythema. Moist mucous membranes. No sinus tenderness. NECK: Normal range of motion, supple without lymphadenopathy LUNGS: Breath sounds clear to auscultation bilaterally and equal. No wheezes rales or rhonchi. HEART: Regular rate and rhythm without murmurs, rubs, gallops. ABDOMEN: Soft, nontender, nondistended abdomen. No guarding, no rebound. Normal bowel sounds present. No CVA tenderness bilaterally. Puente negative. No tenderness at McBurney point. Musculoskeletal: FROM to passive/active. Strength 5+/5. Extremities: No cyanosis, clubbing, or edema b/l. Peripheral pulses 2+. Capillary refill less than 3 seconds. NEUROLOGICAL: Normal speech, normal gait. PSYCH: Normal mood, normal affect. SKIN: Warm, Dry, normal turgor, no rashes or lesions noted. - INFECTION CONTROL TRAVEL OUTSIDE OF THE [place] IN LAST 30 DAYS: No Course - Re-evaluation Re-evalutation: 08/23/19 15:31 Patient is an afebrile, well-hydrated, 33-year-old male who presents to the emergency department with nausea and suspected viral syndrome. Vitals are acceptable without significant tachycardia, tachypnea, or hypoxia. PE is otherwise unremarkable. He is nontoxic-appearing and is tolerating p.o. without difficulty. Lungs are clear to auscultation bilaterally. No further labs or imaging warranted at this time. Low suspicion for any meningitis, sepsis, peritonsillar/pharyngeal abscess, respiratory compromise, Ed's, or other emergent systemic condition at this time. Patient is aware this condition can change from initial presentation and he needs to monitor symptoms closely. Conservative measures otherwise for symptoms. Recheck with your PCM in 2-3 days. Return to the ED with any worsening/concerning symptoms otherwise as reviewed in discharge. Patient is in agreement. - Vital Signs Vital signs: Temp Pulse Resp BP Pulse Ox 98.5 F 100 17 137/72 H 98 08/23/19 13:47 08/23/19 13:47 08/23/19 13:47 08/23/19 13:47 08/23/19 13:47 Discharge - Discharge Clinical Impression: Nausea, Viral syndrome Condition: Stable Disposition: HOME, SELF-CARE Instructions: Viral Syndrome ([facility]), Antinausea Medication ([facility]) Additional Instructions: Maintain adequate fluid and food intake [place] diet ([employer] Bananas, rice, apples, toast, etc Zofran as needed tylenol if needed Monitor for any worsening symptoms Make sure you are staying hydrated enough to urinate and have normal BM's Recheck with your PCM in 2-3 days Consider consult with Gastroenterology for ongoing/worsening symptoms Return to the ED with any worsening symptoms and/or development of fever, headache, chest pain, palpitations, syncope, shortness of breath, trouble breathing, abdominal pain, n/v/d, blood in stool/urine, weakness, or other worsening symptoms that are concerning to you. Prescriptions: Ondansetron [Zofran Odt 4 mg Tablet] 1 - 2 tab PO Q4H PRN #15 tab.rapdis PRN Reason: For Nausea/Vomiting Forms: Elevated Blood Pressure, Smoking Cessation Education, Return to Work Referrals: [facility] [Provider Group] - Follow up as needed
[2019-08-23 16:18] VITALS: BP 124/67
== END 2019-08-23 16:18 | disposition home or self-care (01) ==
LOC: ER 13:38
DX: B34.9 Viral infection, unspecified (principal); R11.0 Nausea; F17.200 Nicotine dependence, unspecified, uncomplicated; J45.909 Unspecified asthma, uncomplicated
CPT/HCPCS: 99283

== ENCOUNTER 2019-09-11 20:19 | Emergency (ER) | payer OTHER ==
[2019-09-11 20:31] VITALS: BP 135/76
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
== END 2019-09-11 20:53 | disposition home or self-care (01) ==
LOC: ER 20:19
DX: S99.911A Unspecified injury of right ankle, initial encounter (principal); V13.4XXA Pedal cycle driver injured in collision with car, pick-up truck or van in traffic accident, initial encounter
CPT/HCPCS: 99283

== ENCOUNTER 2019-10-18 14:54 | Emergency (ER) | payer OTHER ==
[2019-10-18 14:59] VITALS: BP 142/70
--- NOTE | 2019-10-18 15:07 | ER Document Report ---
ED General - General Chief Complaint: Hemorrhoids Stated Complaint: HEMMORRHOIDS Time Seen by Provider: 10/18/19 15:03 Primary Care Provider: [facility] [Provider Group] - Follow up in 3-5 days CAMI MEEHAN MD [COMMUNITY BASED STAFF] - Follow up in 3-5 days Notes: 33-year-old male presents with hemorrhoids. Patient states that he started to swell a couple days ago. Patient states he has history of same and was seen in this ER couple months ago and was given medicated wipes/cream that helped. Patient denies any fever, abdominal pain, nausea/vomiting, blood in stool, or bleeding when wiping. Patient states is not as swollen as last time. TRAVEL OUTSIDE OF THE [place] IN LAST 30 DAYS: No - Related Data Allergies/Adverse Reactions: No Known Allergies Allergy (Verified 10/18/19 15:02) Past Medical History - Social History Smoking Status: Former Smoker Chew tobacco use (# tins/day): No Frequency of alcohol use: None Drug Abuse: None Family History: Reviewed & Not Pertinent Patient has suicidal ideation: No Patient has homicidal ideation: No Pulmonary Medical History: Reports: Hx Asthma Neurological Medical History: Reports: Hx Migraine Renal/ Medical History: Denies: Hx Peritoneal Dialysis - Immunizations Immunizations up to date: Yes Hx Diphtheria, Pertussis, Tetanus Vaccination: Yes Review of Systems - Review of Systems Notes: Constitutional: Negative for fever. HENT: Negative for sore throat. Eyes: Negative for visual changes. Cardiovascular: Negative for chest pain. Respiratory: Negative for shortness of breath. Gastrointestinal: Negative for abdominal pain, vomiting or diarrhea. Genitourinary: Positive for hemorrhoids. Negative for dysuria. Musculoskeletal: Negative for back pain. Skin: Negative for rash. Neurological: Negative for headaches, weakness or numbness. 10 point ROS negative except as marked above and in HPI. Physical Exam - Vital signs Vitals: Temp Pulse Resp BP Pulse Ox 98.3 F 78 16 142/70 H 98 10/18/19 14:58 10/18/19 14:58 10/18/19 14:58 10/18/19 14:58 10/18/19 14:58 - Notes Notes: Consumer Lending Manager: Marisol CHISHOLM GENERAL: Well-appearing, well-nourished and in no acute distress. HEAD: Atraumatic, normocephalic. EYES: Extraocular movements intact, sclera anicteric, conjunctiva are normal. RECTAL: Small external hemorrhoid seen. No gross blood. EXTREMITIES: Normal range of motion, no pitting or edema. No clubbing or cyanosis. NEUROLOGICAL: Cranial nerves II through XII grossly intact. Normal speech, normal gait. PSYCH: Normal mood, normal affect. SKIN: Warm, Dry, normal turgor, no rashes or lesions noted. Course - Re-evaluation Re-evalutation: 10/18/19 nontoxic, well-appearing 33-year-old male presents with hemorrhoids. Exam is consistent with hemorrhoid first-degree. Patient given prescription for Anusol and also instructed to get medicated wipes [id number]. Patient also given close follow-up with PCP. Strict return precautions given. Patient voices understanding and agrees with plan of care. - Vital Signs Vital signs: Temp Pulse Resp BP Pulse Ox 98.3 F 78 16 142/70 H 98 10/18/19 14:58 10/18/19 14:58 10/18/19 14:58 10/18/19 14:58 10/18/19 14:58 Discharge - Discharge Clinical Impression: Hemorrhoids Qualifiers: Hemorrhoid type: first degree Qualified Code(s): K64.0 - First degree hemorrhoids Condition: Stable Disposition: HOME, SELF-CARE Instructions: HC Hemorrhoid Cream ([facility]), Hemorrhoids ([facility]) Additional Instructions: Please get medicated wipes (such as Tucks) and use Anusol as prescribed. Follow up with clinic listed for further management. Use Sitz baths. Return immediately to ER for any worsening symptoms, including increased pain, increased swelling, blood in stool, abdominal pain, fever, nausea/vomiting, or any other symptoms that are concerning to you. Prescriptions: Hydrocortisone Acetate [Anusol Hc 25 mg Supp.rect] 1 supp.rect TN BID #14 supp.rect Forms: Return to Work Referrals: CMAI MEEHAN MD [COMMUNITY BASED STAFF] - Follow up in 3-5 days [facility] [Provider Group] - Follow up in 3-5 days
== END 2019-10-18 15:16 | disposition home or self-care (01) ==
LOC: ER 14:54
DX: K64.0 First degree hemorrhoids (principal)
CPT/HCPCS: 99282

== ENCOUNTER 2019-11-05 18:39 | Emergency (ER) | payer SELFPAY ==
[2019-11-05 19:12] VITALS: BP 138/78
--- NOTE | 2019-11-05 19:49 | ER Document Report ---
HPI - HPI Time Seen by Provider: 11/05/19 19:39 Pain Level: Denies Context: Patient is a 33-year-old male presents emergency department for a work note. Patient states that he has felt weak and a little under the weather for the past about 3 days. Denies any nausea, vomiting, runny nose, sore throat, diarrhea, or any other symptoms. Patient states that he has had a decreased appetite, but still continues to eat. He is having normal bowel movements. Patient kel terates that he just really would like a work note. He does not have a primary care provider. He is a current every day smoker. - NEURO Neurology: REPORTS: Weakness - CARDIOVASCULAR Cardiovascular: DENIES: Chest pain - RESPIRATORY Respiratory: DENIES: Trouble Breathing, Coughing - GASTROINTESTINAL Gastrointestinal: DENIES: Abdominal Pain, Nausea, Patient vomiting - REPRODUCTIVE Reproductive: DENIES: : - DERM Skin Color: Normal Skin Problems: None Past Medical History - Social History Smoking Status: Current Every Day Smoker Family History: Reviewed & Not Pertinent Patient has suicidal ideation: No Patient has homicidal ideation: No Pulmonary Medical History: Reports: Hx Asthma Neurological Medical History: Reports: Hx Migraine Renal/ Medical History: Denies: Hx Peritoneal Dialysis - Immunizations Immunizations up to date: Yes Hx Diphtheria, Pertussis, Tetanus Vaccination: Yes Vertical Provider Document - CONSTITUTIONAL Agree With Documented VS: Yes Exam Limitations: No Limitations General Appearance: No Apparent Distress - INFECTION CONTROL TRAVEL OUTSIDE OF THE [place] IN LAST 30 DAYS: No - HEENT HEENT: Atraumatic, Normocephalic, PERRLA. negative: Conjuctival Injection, Pharyngeal Exudate, Pharyngeal Tenderness, Pharyngeal Erythema, Tympanic Membrane Red, Tympanic Membrane Bulging - NECK Neck: Normal Inspection - RESPIRATORY Respiratory: Breath Sounds Normal, No Respiratory Distress - CARDIOVASCULAR Cardiovascular: Regular Rate, Regular Rhythm Pulses: Normal: Radial - GI/ABDOMEN Gastrointestinal: Abdomen Soft, Abdomen Non-Tender - MUSCULOSKELETAL/EXTREMETIES Musculoskeletal/Extremeties: FROM - NEURO Level of Consciousness: Awake, Alert, Appropriate Motor/Sensory: No Motor Deficit, No Sensory Deficit - DERM Integumentary: Warm, Dry, No Rash Course - Re-evaluation Re-evalutation: 11/05/19 19:50 Patient states that he does not have any specific complaint, other than having a poor appetite. He states he is still able to eat. Denies any symptoms. Patient states, "I just really want a work note." Work note was given to the patient. I advised the patient to follow-up with [facility] or [facility]. He is in agreement with this plan. Educated the patient on smoking cessation. Follow-up precautions were given. Verbal discharge instructions were given to the patient. They verbalized understanding. They are stable for discharge. Smoking cessation counseling was provided for 4 minutes at the bedside - Vital Signs Vital signs: Temp Pulse Resp BP Pulse Ox 98.5 F 82 20 138/78 H 100 11/05/19 19:10 11/05/19 19:10 11/05/19 19:10 11/05/19 19:10 11/05/19 19:10 Discharge - Discharge Clinical Impression: Myalgia Condition: Stable Disposition: HOME, SELF-CARE Additional Instructions: You were seen today in the emergency department for generally not feeling well. Your exam is normal. Please follow-up with [facility] or [facility] in regards to this visit. Cut back 1 cigarette a week and in about 20 weeks you will be free from smoking. Forms: Return to Work Referrals: [facility] [Provider Group] - Follow up in 3-5 days [facility] [Provider Group] - Follow up in 3-5 days
== END 2019-11-05 19:56 | disposition home or self-care (01) ==
LOC: ER 18:39
DX: M79.10 Myalgia, unspecified site (principal); R53.1 Weakness; R63.0 Anorexia; F17.200 Nicotine dependence, unspecified, uncomplicated; J45.909 Unspecified asthma, uncomplicated
CPT/HCPCS: 99281

== ENCOUNTER 2019-11-14 19:17 | Emergency (ER) | payer SELFPAY ==
[2019-11-14 19:34] VITALS: BP 118/69
[2019-11-14] MEDS ORDERED: PENICILLIN V POTASSIUM 500 MG TABLET PO ONE (19:45)
[2019-11-14] MEDS ORDERED: NAPROXEN 250 MG TABLET PO ONE (19:46)
[2019-11-14] MEDS ORDERED: TRAMADOL HCL 50 MG TABLET PO ONE (19:46)
--- NOTE | 2019-11-14 19:49 | ER Document Report ---
HPI - HPI Time Seen by Provider: 11/14/19 19:43 Pain Level: 5 Notes: CHIEF COMPLAINT: Dental pain for 3 months HPI: 33-year-old male presenting to the emergency department for evaluation of dental pain left upper premolars over the last 3 months. No facial swelling. Has not seen a dentist. No fever. ROS: See HPI - all other systems were reviewed and are otherwise negative Constitutional: no fever Eyes: no drainage, no blurred vision ENT: no runny nose, no sore throat, positive dental pain Integumentary: no rash Allergy: no hives MEDICATIONS: I agree with the patient medications as charted by the RN. ALLERGIES: I agree with the allergies as charted by the RN. PAST MEDICAL HISTORY/PAST SURGICAL HISTORY: Reviewed and agree as charted by RN. SOCIAL HISTORY: Reviewed and agree as charted by RN. FAMILY HISTORY: No significant familial comorbid conditions directly related to patient complaint EXAM: Reviewed vital signs as charted by RN. CONSTITUTIONAL: Alert and oriented and responds appropriately to questions. Well-appearing; well-nourished HEAD: Normocephalic; atraumatic EYES: PERRL; Conjunctivae clear, sclerae non-icteric ENT: normal nose; no rhinorrhea; moist mucous membranes; pharynx without lesions noted, no uvula edema or deviation, no tonsillar hypertrophy, phonation normal. There is dental caries noted at the base of the left upper canine, first premolar. No gingival edema. No sublingual swelling. No trismus. No facial swelling NECK: Supple without meningismus; non-tender; no cervical lymphadenopathy, no masses EXT: Normal ROM in all joints; no cyanosis, no effusions, no edema SKIN: Normal color for age and race; warm; dry; good turgor NEURO: Moves all extremities equally; Motor and sensory function intact PSYCH: The patient's mood and manner are appropriate. Grooming and personal hygiene are appropriate. MDM: 33-year-old male with dental caries with pain from dental caries. Will place on a short course of antibiotics and pain medication refer to dental - REPRODUCTIVE Reproductive: DENIES: : Past Medical History - Social History Smoking Status: Current Every Day Smoker Frequency of alcohol use: None Drug Abuse: None Family History: Reviewed & Not Pertinent Patient has suicidal ideation: No Patient has homicidal ideation: No Pulmonary Medical History: Reports: Hx Asthma Neurological Medical History: Reports: Hx Migraine Renal/ Medical History: Denies: Hx Peritoneal Dialysis - Immunizations Immunizations up to date: Yes Hx Diphtheria, Pertussis, Tetanus Vaccination: Yes Vertical Provider Document - INFECTION CONTROL TRAVEL OUTSIDE OF THE [place] IN LAST 30 DAYS: No Course - Vital Signs Vital signs: Temp Pulse Resp BP Pulse Ox 98.3 F 104 H 20 118/69 100 11/14/19 19:33 11/14/19 19:33 11/14/19 19:33 11/14/19 19:33 11/14/19 19:33 Discharge - Discharge Clinical Impression: Pain due to dental caries Condition: Stable Disposition: HOME, SELF-CARE Additional Instructions: Follow-up with the dentist of your choice for definitive evaluation and treatment of your dental pain complaint. Medications as prescribed no driving if taking narcotics for pain. Return for fever greater than 101 or facial swelling Prescriptions: Naproxen 500 mg PO BID PRN #14 tablet PRN Reason: Penicillin V Potassium [Penicillin Vk 500 mg Tablet] 500 mg PO BID #20 tablet Tramadol HCl [Ultram 50 mg Tablet] 50 mg PO Q6H PRN #12 tab PRN Reason:
== END 2019-11-14 20:08 | disposition home or self-care (01) ==
LOC: ER 19:17
DX: K02.9 Dental caries, unspecified (principal); K08.89 Other specified disorders of teeth and supporting structures; F17.200 Nicotine dependence, unspecified, uncomplicated; J45.909 Unspecified asthma, uncomplicated
CPT/HCPCS: 99282

== ENCOUNTER 2019-11-26 21:23 | Emergency (ER) | payer OTHER ==
[2019-11-26 21:32] VITALS: BP 144/68
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
== END 2019-11-26 21:55 | disposition home or self-care (01) ==
LOC: ER 21:23
DX: M54.6 Pain in thoracic spine (principal); V87.7XXA Person injured in collision between other specified motor vehicles (traffic), initial encounter; F17.210 Nicotine dependence, cigarettes, uncomplicated; J45.909 Unspecified asthma, uncomplicated
CPT/HCPCS: 99283

== ENCOUNTER 2019-12-30 21:30 | Emergency (ER) | payer SELFPAY ==
[2019-12-30] MEDS ORDERED: LIDOCAINE 4%/TETRACAINE 0.5%/EPI 0.18% 5 ML TOPICAL SOLN TOP ONE (23:10)
--- NOTE | 2019-12-30 23:14 | ER Document Report ---
ED General - General Chief Complaint: Mouth Problem Stated Complaint: ABSCESS ON GUMS Time Seen by Provider: 12/30/19 22:54 TRAVEL OUTSIDE OF THE [place] IN LAST 30 DAYS: No - HPI Notes: Patient is a 34-year-old male who presents to the emergency department for evaluation of dental abscess. He states is been there for about 2 weeks, has been getting slightly bigger. He states the pain is unbearable, rates it a 5 out of 5. He has not tried anything to feel better besides Tylenol or ibuprofen. He does not currently have a dentist. He denies any fevers or chills. No nausea or vomiting. He is breathing a swallowing without difficulty. - Related Data Allergies/Adverse Reactions: No Known Allergies Allergy (Verified 11/14/19 19:40) Home Medications: None Past Medical History - General Information source: Patient - Social History Smoking Status: Current Every Day Smoker Frequency of alcohol use: None Drug Abuse: None Family History: Reviewed & Not Pertinent Patient has suicidal ideation: No Patient has homicidal ideation: No Pulmonary Medical History: Reports: Hx Asthma Neurological Medical History: Reports: Hx Migraine Renal/ Medical History: Denies: Hx Peritoneal Dialysis - Immunizations Immunizations up to date: Yes Hx Diphtheria, Pertussis, Tetanus Vaccination: Yes Review of Systems - Review of Systems EENT: See HPI -: Yes All other systems reviewed and negative Physical Exam - Vital signs Vitals: Temp Pulse Resp BP Pulse Ox 99.1 F 99 18 140/73 H 100 12/30/19 21:34 12/30/19 21:34 12/30/19 21:34 12/30/19 21:34 12/30/19 21:34 - Notes Notes: This is a 34-year-old male who appears to stated age, no acute distress. Head is normocephalic and atraumatic, pupils are equal round, reactive to light. Oral mucosa is moist. Patient has a 5 mm fluctuant abscess to the gingiva, above the eye to to the left maxilla. No significant surrounding erythema. No other swelling. He has moderate dental decay and dental caries noted, particularly at the gingival line overlying the left maxillary incisors and premolars. No sublingual edema is noted. No submandibular adenopathy. Heart regular rate and rhythm without murmur, lungs are clear oscillation bilaterally. Skin is warm and dry. Patient is awake and alert, neurological exam is nonfocal. Course - Re-evaluation Re-evalutation: 12/30/19 23:14 Patient presents to the emergency department for evaluation. He does have a very small abscess. I will go ahead and place some let solution on the area and drain it with a needle. Patient is amenable to this plan. 12/31/19 00:02 Once patient had proper anesthesia from topical let, 22-gauge needle was inserted into the abscess. A small amount of purulent drainage was obtained. Patient tolerated this well, no complications. He was given a dose of penicillin here. He was referred on to the dental clinics, and the importance of good oral hygiene and regular dental care was stressed to the patient. He voiced understanding. I will send him home with a prescription for penicillin, he is given a dose of Percocet here. He is to follow-up with dentist as mentioned, return to the ER with worsening or new concerning symptoms of any sort. - Vital Signs Vital signs: Temp Pulse Resp BP Pulse Ox 99.1 F 99 18 140/73 H 100 12/30/19 21:34 12/30/19 21:34 12/30/19 21:34 12/30/19 21:34 12/30/19 21:34 Procedures - Incision and Drainage Left Upper Face Time completed: 00:00 Type: Simple Anesthetic type: Other - Topical let Incision Method: Incision made with needle - 22-gauge needle Amount/type of drainage: 0.5 cc purulent drainage Mouth/Teeth picture: 1 - Gingival abscess Discharge - Discharge Clinical Impression: Dental abscess Condition: Stable Disposition: HOME, SELF-CARE Instructions: Abscess ([facility]), Dental Infection or Abscess ([facility]) Additional Instructions: Salt water gargles, keep area clean. Take all the antibiotic as prescribed. You need to see a dentist as soon as possible. If you develop fevers, increased swelling, difficulty breathing or swallowing, or any other new or concerning sy mptoms, please return immediately to the emergency department for evaluation.
[2019-12-30] MEDS ORDERED: PENICILLIN V POTASSIUM 500 MG TABLET PO ONE (23:40)
[2019-12-31] MEDS ORDERED: OXYCODONE-ACETAMINOPHEN 5-325 MG TABLET PO ONE (00:03)
[2019-12-31 00:44] VITALS: BP 135/70
== END 2019-12-31 00:44 | disposition home or self-care (01) ==
LOC: ER 21:30
DX: K04.7 Periapical abscess without sinus (principal); K05.319 Chronic periodontitis, localized, unspecified severity; K02.9 Dental caries, unspecified; F17.200 Nicotine dependence, unspecified, uncomplicated; J45.909 Unspecified asthma, uncomplicated
CPT/HCPCS: 99283; 41800; J3490